=== PATIENT | male | born 1985 | race Caucasian/White ===

== ENCOUNTER 2025-06-12 17:01 | Inpatient (IN) | payer MEDICAID, SELFPAY ==
[2025-06-12 17:03] VITALS: BP 147/108; PULSE 132; RESP 18; TEMP 36.6; O2SAT 97; BMI 20.9
--- NOTE | 2025-06-12 17:25 | EDS_ITS ---
HPI History of Present Illness Chief Complaint: Substance Abuse Narrative Narrative: Patient is a 39-year-old male presenting to the emergency department for detox. Patient reports that he uses fentanyl and heroin. He used approximately an hour ago. States that he usually uses every 6 hours. Has been doing this for about 5 years. Reports that he went through detox once in [place]. Endorses marijuana use as well. Denies any alcohol or any other drug use. [facility] Medical History (Updated 06/12/25 @ 18:02 by Priscilla Nieves) Hepatitis C Hypertension Home Medications ?Medication ?Instructions ?Recorded ?Last Taken ?Type NK 06/12/25 Unknown History Allergy/AdvReac Type Severity Reaction Status Date / Time acetaminophen (From Percocet) Allergy Mild Hives Verified 06/12/25 17:02 hydrocodone (From Vicodin) Allergy Mild Hives Verified 06/12/25 17:02 oxycodone (From Percocet) Allergy Mild Hives Verified 06/12/25 17:02 tramadol Allergy Hives Verified 06/12/25 17:02 Social History Smoking Status: Current every day smoker tobacco type: cigarettes ROS ROS ED ROS Narrative see HPI EXAM Physical Exam Narrative Exam Narrative: Vital signs: Reviewed General: Alert and orientedx3. No acute distress HEENT: Head is normocephalic and atraumatic, sinuses nontender, pupils equal round and reactive. 3mm bilaterally. Nares are patent. Oropharynx and throat exams normal. Neck: Supple without lymphadenopathy nontender Cardiovascular: Regular rate and rhythm, no murmurs. No rubs or gallops. Normal S1 and S2 Respiratory: Clear to auscultation bilaterally. No wheezes, rales, rhonchi Abdominal: Soft and nontender. Normal bowel sounds. No guarding or rebound. Nonsurgical abdomen Extremities: No tenderness. No bruising. Normal range of motion. Normal sensation. Skin: Excoriations to bilateral arms. No evidence of cellulitis or abscesses. Neurological: Cranial nerves II through XII are grossly intact. Normal strength and sensation. Normal cerebellar function The rest of the physical exam is unremarkable Const Vital Signs: 06/12/25 17:03 06/12/25 17:45 Temperature 97.9 F Temperature Source Temporal Pulse Rate 132 H 95 Respiratory Rate 18 18 Blood Pressure 147/108 H 141/91 H Blood Pressure Mean 121 107 Pulse Ox 97 100 Oxygen Delivery Method Room Air Room Air MDM MDM MDM Narrative Medical decision making narrative: Patient is a 39-year-old male presenting emergency department for detox. Patient was seen and examined. Patient arrives and is tachycardic at 132. Vitals are otherwise stable. Vitals on recheck in the room with HR of 95. Basic labs and urine drug screen ordered. COWS score of 9 based on triage vitals however after revital now score of 6. Patient given Zofran for symptomatic control. Alcohol level negative. Blood work was consistent with some mild dehydration otherwise no significant abnormalities. Patient admitted to hospitalist, Dr. Melo for further management of his opiate detox. Clinical impression: Substance abuse Detox History & Record Review Discussion w/independent historian: Patient and Family Lab Data Attestation: I reviewed the patient's lab results. Labs: Laboratory Results - last 24 hr 06/12/25 06/12/25 17:27 17:32 WBC 14.0 H RBC 5.06 Hgb 13.9 Hct 41.3 MCV 81.6 MCH 27.5 MCHC 33.7 RDW Std Deviation 40.6 RDW Coeff of Rayne 13.9 Plt Count 454 H MPV 10.7 Immature Gran % (Auto) 0.300 Neut % (Auto) 58.8 Lymph % (Auto) 31.7 Merrick % (Auto) 8.5 Eos % (Auto) 0.3 Baso % (Auto) 0.4 Absolute Neuts (auto) 8.3 H Absolute Lymphs (auto) 4.44 Nucleated RBC % 0 Platelet Estimate ADEQUATE RBC Morphology NORM C+C Sodium 148 H Potassium 3.3 Chloride 101 Carbon Dioxide 31.0 Anion Gap 17 H BUN 26 H Creatinine 1.05 Estim Creat Clear Calc 91.86 Est GFR (MDRD) Non-Af 93 BUN/Creatinine Ratio 25.0 H Glucose 105 H Calcium 10.1 Urine Opiates Screen PRESUMPTIVE POSITIVE U Buprenorphine Qual NEGATIVE Ur Oxycodone Screen NEGATIVE Urine Methadone Screen NEGATIVE Urine Fentanyl Screen PRESUMPTIVE POSITIVE Ur Barbiturates Screen NEGATIVE Ur Phencyclidine Scrn NEGATIVE Ur Amphetamines Screen PRESUMPTIVE POSITIVE U Benzodiazepines Scrn NEGATIVE Urine Cocaine Screen NEGATIVE U Cannabinoids Screen PRESUMPTIVE POSITIVE Ethyl Alcohol < 10.1 Discharge Plan Triage Chief Complaint: Substance Abuse ED Provider: Prisca Hutchins Dx/Rx/DC Orders Prescriptions: No Action NK Primary Care Provider: Care Physician,No Primary Referrals: Care Physician,No Primary [Primary Care Provider] - Print Language: Cypriot
[2025-06-12 17:45] VITALS: BP 141/91; PULSE 95; RESP 18; O2SAT 100
[2025-06-12 17:47] LABS: Hematocrit 41.3 % (40-54); Hemoglobin 13.9 g/dL (13.0-16.5); Immature Granulocytes Count 0.040 X10^3/uL (0.0-0.0); Mean Corp Hgb Conc 33.7 g/dL (32-36); Mean Corpuscular Volume 81.6 fL (80-94); Mean Platelet Vol. 10.7 fl (6.2-12.0); NRBC Flagged by Analyzer 0 % (0-5); POSITIVE MORPHOLOGY YES; Platelet Count 454 K/mm3 (150-450); RBC Distribution Width CV 13.9 % (11.6-14.6); RBC Distribution Width SD 40.6 fl (35.1-43.9); Red Blood Count 5.06 M/mm3 (4.6-6.2); White Blood Count 14.0 K/mm3 (4.4-11.0)
--- OUTSIDE RECORDS SUMMARY | 2025-06-12 17:57 | XMS RPT_ITS | CCD ---
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 EMERGENCY DEPARTMENT PHYSICIAN [facility] Discharge Instructionon 06-07 Discharge Instruction [facility] Records [id number] AUDRA BHATLEONARDO LUIS ENRIQUE [address]45[address]Gnfiexyyl Przftqchxmz60/29/17 1901MR#: [id number] Acct: [id number]: GERALD GREER Rep #: [id number]: 1985 31 From: Glenys REYESCP: NOT,DEFINED Status: PRE ERED Disposition- Plan for ED Patient:Chief Complaint: General IllnessInstructions: ED Gastroenteritis ViralPrescriptions:Ondan setron [Zofran Odt] 4 mg PO Q8H PRN PRN #10 tabletPRN Reason: NauseaReferrals:NOT,RICCI QUINTERO [Primary Care Provider] -Haroon Mercedes MD [STAFF PHYSICIAN] - 3-5 DaysWhat to do if you have ProblemsFor any increased pain, shortness of breath, bleeding, nausea or vomiting, chest pain, or anyunexpected problems, contact your Primary Care Provider. Call [facility] ([phone])or report to the closest Emergency Room.Call 911 if necessary.07/04/171902 Date Glenys De La Paz Signature (If Indicated): Date CC : DEFINED NOT Normal [facility] Emergency Department Summary on 07-04-2017 Emergency Department Summary [facility] Records [id number] AUDRA BHATMARCO ANTONIOETHEL LUIS ENRIQUE [address]Zvhuolaoe Department Yykdyzf54/29/17 1900MR#: [id number] Acct: [id number]: GREERGERALD Rep #: [id number]: 1985 31 From: Glenys REYESCP: NOT,DEFINED Status: PRE ER- ER Visit SummaryDate of Service: 07/04/17Chi Complaint: [Vomiting diarrhea]History of Present Illness: The patient is a 31 M [presents with symptoms of stomach flu timesapproximately 24 hours. Patient states that he had watery diarrhea about once every hour untilthis morning. Patient also vomited multiple times. He denies any cough. He denies any fever.He started to develop a mild sore throat today.]Physical Examination: [HEENT-PERRLA, EOMI. Cranial nerves II through XII grossly intact. TMsclear. Mucous membranes moist. No adenopathy.Cardiovascula r-regular rate and rhythm without murmur or ectopyLungs-clear to auscultation, chest wall stable without crepitus or subcu emphysemaAbdomen-normoac tive bowel sounds, soft, nontender, no rebound or rigidity, no peritoneal signs.Extremities-intact 4, normal range of motion, normal pulses, atraumatic]Test Results: [None indicated]Emergency Department Course and Treatment: [None at this time] she has normal vital signs andlooks well.Treatment Plan: [Patient will be given a prescription for Zofran and instructed to use Imodiumas needed for diarrhea]Disposition: Discharged home in stable condition. Patient advised to follow-up with primarycare physician who is on-call for no doc within next 3-5 days as needed. []Impression: [Viral gastroenteritis]ED Disposition- Plan for ED Patient:Chief Complaint: General IllnessReferrals:NOT,DEF INED [Primary Care Provider] -What to do if you have ProblemsFor any increased pain, shortness of breath, bleeding, nausea or vomiting, chest pain, or anyunexpected problems, contact your Primary Care Provider. Call [facility] ([phone])or report to the closest Emergency Room.Call 911 if necessary.07/04/17 1901 Date Glenys Robertson DOCosigner Signature (If Indicated): Date CC : DEFINED NOT Normal [facility] Encounters Encounter Date Encounter Type Care Provider Facility Start: 12-20-2023 End: 12-20-2023 Emergency department patient visit PHYSICIAN LUZ [facility] Start: 07-10-2023 End: 07-10-2023 Emergency department patient visit DR DANIELLA JOHNSON DO Facility:B Start: 02-17-2023 End: 02-17-2023 Emergency department patient visit SOLEDAD GONZALEZ DO Facility:[facility] Start: 07-04-2017 End: 07-04-2017 Emergency department patient visit Glenys Robertson Facility:[facility] Payers Date Payer Category Payer Unknown [id number] 1985 Unknown [id number] 1985 Unknown [id number] 1985 Unknown [id number] Unknown [id number] Summary Purpose Family History No Family History Records FoundNo Family History Records FoundNo Family History Records FoundNo Family History Records Found Advance Directives No Advanced Directives Records FoundNo Advanced Directives Records FoundNo Advanced Directives Records FoundNo Advanced Directives Records Found Additional Source Comments (unrecognized sect ion and content) No Status Records FoundNo Status Records FoundNo Status Records FoundNo Status Records Found INFORMATION SOURCE (unrecogn ized section and content) DATE CREATED AUTHOR 04/03/2018 [facility] DATE CREATED AUTHOR AUTHOR'S ORGANIZ ATION 05/16/2020 [facility] DATE CREATED AUTHOR AUTHOR'S ORGANIZ ATION 07/21/2023 [facility] ([place]) DATE CREATED AUTHOR AUTHOR'S ORGANIZ ATION 10/03/2024 [facility] FOR RECORDS PERTAINING TO PATIENTS WHO ARE OR HAVE BEEN ENROLLED IN A CHEMICAL DEPENDENCY/SUBSTANCEABUSE PROGRAM, SOME INFORMATION MAY BE OMITTED. This clinical summary was aggregated from multiple sources. Caution should be exercised in using it in the provision of clinical care. This summary normalizes information from multiple sources, and as a consequence, information in this document may materially change the coding, format and clinical context of patient data. In addition, data may be omitted in some cases. CLINICAL DECISIONS SHOULD BE BASED ON THE PRIMARY CLINICAL RECORDS. [employer] [facility]. provides no warranty or guarantee of the accuracy or completeness of information in this document.
[2025-06-12 18:02] VITALS: BP 146/99; PULSE 100; RESP 19; O2SAT 99
[2025-06-12 18:04] LABS: Anion Gap 17 (5-15); BUN 26 mg/dL (4-19); BUN/Creat Ratio 25.0 RATIO (10-20); Calcium,Total 10.1 mg/dL (7.6-11.0); Carbon Dioxide 31.0 mmol/L (21.0-32.0); Chloride 101 mmol/L (98-108); Estimated Creatinine Clearance 91.86 ml/min (50-250); Glucose 105 mg/dL (70-99); Potassium 3.3 mmol/L (3.3-5.1)
[2025-06-12 18:07] LABS: Differential Indicated SCAN CRITERIA MET
[2025-06-12 18:08] LABS: Red Cell Morphology NORM C+C NORMAL (NORM C&C)
[2025-06-12 18:11] LABS: Alcohol, Blood (Medical)-Serum < 10.1 mg/dL (<=10.0)
[2025-06-12 18:14] LABS: Barbiturate Urine NEGATIVE (< 200 ng/mL); Benzodiazepine Urine NEGATIVE (< 200 ng/mL); PCP Urine NEGATIVE (< 25 ng/mL); THC Urine PRESUMPTIVE POSITIVE (< 50 ng/mL)
[2025-06-12 18:24] VITALS: BP 141/91; PULSE 95; RESP 18; TEMP 36.6; O2SAT 100
--- NOTE | 2025-06-12 18:57 | HP.PCM.HOS_ITS ---
HPI - General General Date of Admission: 06/12/25 Date of Service: 06/12/25 Chief Complaint: Requesting opioid detox HPI Narrative CIERA STEWART, is a 39-year-old male history of hepatitis C and fentanyl and heroin use presented [facility] ED 06/12/2025 requesting detox from opiates. He uses fentanyl and heroin around every 6 hours and has been for about 5 years, used 1 hour ago. Has never been through detox here but went through detox once in [place]. Uses marijuana as well but no other alcohol or drug use reported. In the ED temp 97.9, heart rate initially 132 but repeat of 95, blood pressure 141/91, respiratory rate 18 and pulse ox 100% on room air. BMP with a sodium of 148, BUN of 26 and creatinine 1.05, glucose 105, CBC with white count of 14 and platelet 454. Alcohol negative. UDS presumptive positive for opiates, fentanyl, amphetamines cannabinoids. Hospitalist contacted for admission for opioid detox. Patient evaluated bedside with family member present. Family member expressed her irritation the patient was not yet completely admitted as patient was becoming increasingly irritable and talking about possibly leaving, patient however very cooperative and did not express that to me at time of exam. He reports IV drug abuse and diagnosis of hepatitis C last year but is not had treatment. He uses fentanyl and heroin and sometimes methamphetamine as well as marijuana last use 1 hour prior to arrival. At time my evaluation he is primarily complaining of bodyaches but also notes stuffy nose. Has a slight cough which is not new and reports for a while he has had a little bit of swelling in his ankles which also is not new. Denies any overt abdominal pain but on palpation did say he had some [facility] Medical History (Updated 06/12/25 @ 19:[address] Arabella Melo MD) Hepatitis C Hypertension Home Medications ?Medication ?Instructions ?Recorded ?Last Taken ?Type NK 06/12/25 Unknown History Allergy/AdvReac Type Severity Reaction Status Date / Time acetaminophen (From Percocet) Allergy Mild Hives Verified 06/12/25 17:02 hydrocodone (From Vicodin) Allergy Mild Hives Verified 06/12/25 17:02 oxycodone (From Percocet) Allergy Mild Hives Verified 06/12/25 17:02 tramadol Allergy Hives Verified 06/12/25 17:02 Social History Smoking Status: Current every day smoker tobacco type: cigarettes ROS ROS Narrative General: Denies fever/chills, has generalized bodyaches HENT: Some nasal congestion will bit of a headache, denies sore throat EYES: Denies changes in vision Resp: Chronic cough, denies shortness of breath Cardiac: Denies chest pain GI: Maybe some slight abdominal pain and nausea : Denies changes in urination Extremity: Has some chronic swelling in his ankles MSK: Denies weakness Neuro: Denies any numbness/tingling Heme: Denies any bleeding or bruising Skin: Denies rashes Psychiatric: Patient just uncomfortable and anxious Vital Signs Vital Signs Vital Signs: 06/12/25 17:03 06/12/25 17:45 06/12/25 18:02 Temperature 97.9 F Temperature Source Temporal Pulse Rate 132 H 95 100 Respiratory Rate 18 18 19 H Blood Pressure 147/108 H 141/91 H 146/99 H Blood Pressure Mean 121 107 114 Pulse Ox 97 100 99 Oxygen Delivery Method Room Air Room Air 06/12/25 18:24 Temperature 98 F Temperature Source Pulse Rate 95 Respiratory Rate 18 Blood Pressure 141/91 H Blood Pressure Mean 107 Pulse Ox 100 Oxygen Delivery Method Weight Weight: 68.084 kg Body Mass Index (BMI) 20.9 Physical Exam Narrative General: Alert, oriented HEENT: Atraumatic, normocephalic Eyes: Anicteric, normal conjunctiva, extraocular movements grossly intact Neck: Supple Respiratory: Clear to auscultation bilaterally, normal respiratory effort Cardiovascular: Low-grade sinus tachycardia GI: Soft, nondistended, a little bit tender diffusely without any rebound, guarding, rigidity Extremities: No pitting edema Musculoskeletal: Moving all extremities Neuro: No overt focal neurological deficits Skin: No rashes appreciated Psych: Cooperative but appears anxious Results Lab / Micro Data 06/12/25 17:27 06/12/25 17:27 Labs: Laboratory Results - last 24 hr 06/12/25 17:27: WBC 14.0 H, RBC 5.06, Hgb 13.9, Hct 41.3, MCV 81.6, MCH 27.5, MCHC 33.7, RDW Std Deviation 40.6, RDW Coeff of Rayne 13.9, Plt Count 454 H, MPV 10.7, Immature Gran % (Auto) 0.300, Neut % (Auto) 58.8, Lymph % (Auto) 31.7, [place] % (Auto) 8.5, Eos % (Auto) 0.3, Baso % (Auto) 0.4, Absolute Neuts (auto) 8.3 H, Absolute Lymphs (auto) 4.44, Nucleated RBC % 0, Platelet Estimate ADEQUATE, RBC Morphology NORM C+C, Sodium 148 H, Potassium 3.3, Chloride 101, Carbon Dioxide 31.0, Anion Gap 17 H, BUN 26 H, Creatinine 1.05, Estim Creat Clear Calc 91.86, Est GFR (MDRD) Non-Af 93, BUN/Creatinine Ratio 25.0 H, Glucose 105 H, Calcium 10.1, Ethyl Alcohol < 10.1 06/12/25 17:32: Urine Opiates Screen PRESUMPTIVE POSITIVE, U Buprenorphine Qual NEGATIVE, Ur Oxycodone Screen NEGATIVE, Urine Methadone Screen NEGATIVE, Urine Fentanyl Screen PRESUMPTIVE POSITIVE, Ur Barbiturates Screen NEGATIVE, Ur Phencyclidine Scrn NEGATIVE, Ur Amphetamines Screen PRESUMPTIVE POSITIVE, U Benzodiazepines Scrn NEGATIVE, Urine Cocaine Screen NEGATIVE, U Cannabinoids Screen PRESUMPTIVE POSITIVE Assessment & Plan Assessment/Plan (1) Opioid abuse: (2) Amphetamine abuse: (3) Tobacco use: (4) Hepatitis C: PLAN: Plan #Acute opiate withdrawal - Subutex taper initiated - As needed Tylenol, ibuprofen, bowel regimen, gabapentin, Bentyl, Vistaril, methocarbamol, clonidine - As needed trazodone nightly - As needed antiemetics -Once patient begins to clinically improve will discuss further discharge planning # Hepatitis C -Reports being told he was positive last year -Has not pursued treatment -Has some vague abdominal discomfort -Will check hepatic panel and INR -If abnormal could consider viral serologies versus deferring to outpatient -Would recommend outpatient follow-up # Polysubstance abuse -Advise cessation, patient uses methamphetamine in addition to opiates #Tobacco use -Advise cessation -Nicotine replacement available if desired #DVT ppx: Low risk, ambulatory Arabella Melo MD Charges/Coding Visit Charges Inpatient E&M: 89397 Init Hosp L2
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
[2025-06-12 19:38] VITALS: BMI 20.1
[2025-06-12 19:39] VITALS: BP 145/96; PULSE 98; RESP 18; TEMP 37; O2SAT 100
[2025-06-12] MEDS: Nicotine (PBKC) 14 MG Patch TD (20:06)
[2025-06-12 20:47] LABS: AST(SGOT) 24 U/L (<=37); Alanine Aminotransfer ALT/SGPT 17 U/L (<=46); Albumin, Serum 4.6 g/dL (3.5-5.0); Alkaline Phosphatase 85 U/L (40-129); Bilirubin, Direct 0.20 mg/dL (0.00-0.30); Globulin 3.6 g/dL (2.2-4.2)
[2025-06-13 02:49] VITALS: BP 137/85; PULSE 98; RESP 14; TEMP 36.6; O2SAT 99
[2025-06-13 08:23] LABS: Hematocrit 44.4 % (40-54); Hemoglobin 15.0 g/dL (13.0-16.5); Immature Granulocytes Count 0.090 X10^3/uL (0.0-0.0); Mean Corp Hgb Conc 33.8 g/dL (32-36); Mean Corpuscular Volume 81.3 fL (80-94); Mean Platelet Vol. 11.0 fl (6.2-12.0); NRBC Flagged by Analyzer 0 % (0-5); Platelet Count 336 K/mm3 (150-450); RBC Distribution Width CV 13.8 % (11.6-14.6); RBC Distribution Width SD 40.7 fl (35.1-43.9); Red Blood Count 5.46 M/mm3 (4.6-6.2); White Blood Count 11.4 K/mm3 (4.4-11.0)
[2025-06-13 09:00] VITALS: PULSE 100
[2025-06-13 09:01] VITALS: BP 146/90; PULSE 101; RESP 18; TEMP 36.6; O2SAT 97
[2025-06-13] MEDS: Nicotine (PBKC) 14 MG Patch TD (09:10)
[2025-06-13 09:59] LABS: AST(SGOT) 29 U/L (<=37); Alanine Aminotransfer ALT/SGPT 15 U/L (<=46); Albumin, Serum 4.3 g/dL (3.5-5.0); Alkaline Phosphatase 82 U/L (40-129); Anion Gap 15 (5-15); BUN 26 mg/dL (4-19); BUN/Creat Ratio 32.7 RATIO (10-20); Calcium,Total 9.8 mg/dL (7.6-11.0); Carbon Dioxide 27.9 mmol/L (21.0-32.0); Chloride 98 mmol/L (98-108); Estimated Creatinine Clearance 118.96 ml/min (50-250); Globulin 3.0 g/dL (2.2-4.2); Glucose 102 mg/dL (70-99); Potassium 3.9 mmol/L (3.3-5.1)
--- NOTE | 2025-06-13 11:39 | PN.HOSP_ITS ---
Reason for Visit Chief Complaint: Requesting opioid detox Objective Data Objective Data Vital Signs: Vital Signs Temp Pulse Resp BP Pulse Ox O2 Del Method 97.9 F 101 H 18 146/90 H 97 Room Air 06/13/25 09:01 06/13/25 09:01 06/13/25 09:01 06/13/25 09:01 06/13/25 09:01 06/13/25 09:01 Oxygen Delivery Method Room Air Weight: 144 lb 6.444 oz Body Mass Index (BMI) 20.1 Intake & Output: Intake and Output for Last 24 Hours 06/11/25 06/12/25 06/13/25 23:59 23:59 23:59 Intake Total 240 / 240 Balance 240 / 240 Lab / Micro Data 06/13/25 07:53 06/13/25 07:53 Labs: Laboratory Results - last 24 hr 06/12/25 17:27: WBC 14.0 H, RBC 5.06, Hgb 13.9, Hct 41.3, MCV 81.6, MCH 27.5, MCHC 33.7, RDW Std Deviation 40.6, RDW Coeff of Rayne 13.9, Plt Count 454 H, MPV 10.7, Immature Gran % (Auto) 0.300, Neut % (Auto) 58.8, Lymph % (Auto) 31.7, [place] % (Auto) 8.5, Eos % (Auto) 0.3, Baso % (Auto) 0.4, Absolute Neuts (auto) 8.3 H, Absolute Lymphs (auto) 4.44, Nucleated RBC % 0, Platelet Estimate ADEQUATE, RBC Morphology NORM C+C, Sodium 148 H, Potassium 3.3, Chloride 101, Carbon Dioxide 31.0, Anion Gap 17 H, BUN 26 H, Creatinine 1.05, Estim Creat Clear Calc 91.86, Est GFR (MDRD) Non-Af 93, BUN/Creatinine Ratio 25.0 H, Glucose 105 H, Calcium 10.1, Ethyl Alcohol < 10.1 06/12/25 17:32: Urine Opiates Screen PRESUMPTIVE POSITIVE, U Buprenorphine Qual NEGATIVE, Ur Oxycodone Screen NEGATIVE, Urine Methadone Screen NEGATIVE, Urine Fentanyl Screen PRESUMPTIVE POSITIVE, Ur Barbiturates Screen NEGATIVE, Ur Phencyclidine Scrn NEGATIVE, Ur Amphetamines Screen PRESUMPTIVE POSITIVE, U Benzodiazepines Scrn NEGATIVE, Urine Cocaine Screen NEGATIVE, U Cannabinoids Screen PRESUMPTIVE POSITIVE 06/12/25 20:00: Total Bilirubin 0.42, Direct Bilirubin 0.20, AST 24, ALT 17, Alkaline Phosphatase 85, Total Protein 8.1, Albumin 4.6, Globulin 3.6 06/13/25 07:53: WBC 11.4 H, RBC 5.46, Hgb 15.0, Hct 44.4, MCV 81.3, MCH 27.5, MCHC 33.8, RDW Std Deviation 40.7, RDW Coeff of Rayne 13.8, Plt Count 336, MPV 11.0, Immature Gran % (Auto) 0.800, Neut % (Auto) 45.0 L, Lymph % (Auto) 41.3 H, [place] % (Auto) 7.8, Eos % (Auto) 4.5, Baso % (Auto) 0.6, Absolute Neuts (auto) 5.1, Absolute Lymphs (auto) 4.72 H, Nucleated RBC % 0, Sodium 141, Potassium 3.9, Chloride 98, Carbon Dioxide 27.9, Anion Gap 15, BUN 26 H, Creatinine 0.78, Estim Creat Clear Calc 118.96, Est GFR (MDRD) Non-Af 117, BUN/Creatinine Ratio 32.7 H, Glucose 102 H, Calcium 9.8, Total Bilirubin 0.63, AST 29, ALT 15, Alkaline Phosphatase 82, Total Protein 7.2, Albumin 4.3, Globulin 3.0, Albumin/Globulin Ratio 1.4 Assessment & Plan Assessment/Plan (1) Opioid abuse: (2) Amphetamine abuse: (3) Tobacco use: (4) Hepatitis C: PLAN: Plan #Acute opiate withdrawal - Subutex taper initiated - As needed Tylenol, ibuprofen, bowel regimen, gabapentin, Bentyl, Vistaril, methocarbamol, clonidine - As needed trazodone nightly - As needed antiemetics -Once patient begins to clinically improve will discuss further discharge planning # Hepatitis C -Reports being told he was positive last year -Has not pursued treatment -Has some vague abdominal discomfort -Will check hepatic panel and INR -If abnormal could consider viral serologies versus deferring to outpatient -Would recommend outpatient follow-up # Polysubstance abuse -Advise cessation, patient uses methamphetamine in addition to opiates #Tobacco use -Advise cessation -Nicotine replacement available if desired #DVT ppx: Low risk, ambulatory Arabella Melo MD
--- NOTE | 2025-06-13 11:53 | ADDICTION ---
Pt was met with for RAMP assessment and to complete the AUDIT, DUDIT, ASAM, MSE, and DC Plan. Pt was engaged in psychoeducation on the disease process of addiction and relapse. Pt was engaged in exploring his pattern of relapse and pt had some insight. Pt was offered residential and outpatient tx options and pt declined residential but was open to outpatient and MAT.
--- NOTE | 2025-06-13 11:59 | NURSING ---
per lab- pt is refusing fingerstick for PT/INR. notified
--- NOTE | 2025-06-13 13:47 | NURSING ---
While this RN was at lunch, pt told psychiatric secretary he was leaving and lied about the room he was in. Pt left AMA.
--- NOTE | 2025-06-13 14:30 | DS.PCM_ITS ---
Providers Date of Admission: 06/12/25 Date of Discharge: 06/13/25 Primary Care Physician: No Primary Care Phys Reason For Visit: OPIOID DETOX Diagnosis Discharge Diagnosis (1) Opioid abuse: Status: Acute Code(s): F11.10 - Opioid abuse, uncomplicated (2) Amphetamine abuse: Status: Acute Code(s): F15.10 - Other stimulant abuse, uncomplicated (3) Tobacco use: Status: Acute Code(s): Z72.0 - Tobacco use (4) Hepatitis C: Status: Acute Code(s): B19.20 - Unspecified viral hepatitis C without hepatic coma Plan This 39-year-old gentleman being admitted for acute opioid withdrawal syndrome. Uses IV fentanyl and heroin half to 1 g daily. Acute opioid withdrawal syndrome with history of chronic opioid use disorder, tolerance: Patient has been in remission floor. The patient is started on buprenorphine along with other adjunctive medications as needed for medical stabilization as per order set of opioid withdrawal syndrome.Patient also on trazodone, hydroxyzine, gabapentin as needed ordered. 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 # Chronic Hepatitis C -Reports being told he was positive last year -Not been treated before. Liver chemistry normal limit. Patient refused for INR check. - # Polysubstance abuse -Advise cessation, patient uses methamphetamine in addition to opiates #Tobacco use -Advise cessation -Nicotine replacement available if desired #DVT ppx: Low risk, ambulatory Patient signed AMA today. Medications at Discharge Home Medications NK 06/12/25 Physical Exam Narrative Seen and examined Patient is awake but slow and lethargic Physical exam: General: Awake, oriented x 3 HEENT: Atraumatic, PERRLA, EOMI, Normocephalic. Oral: No Gingival or Mucosal Lesions/ Ulcerations Neck: Supple, No JVD, Negative Carotid Bruits Chest wall/Lungs: Air entry diminished in bilateral lung bases. No crepitation/rhonchi Cardiovascular: Regular rate and rhythm, Normal S1,S2, No M/G/R Abdomen: Bowel Sounds Present, Soft, Non Tender, Non-Distended : No dysuria. No renal angle tenderness. No suprapubic tenderness. Extremities: No edema, Capillary Refill Less than 3 Seconds Skin: No rashes, No breakdown Musculoskeletal: No Tenderness to Palpation of Joints or Extremities Neurological: Cranial nerves II-XII grossly intact, DTR 2+/4. No acute focal neurological deficit. Psych/Mental Status: Flat affect. Denies suicidal ideation. Weight / BMI Weight Weight: 144 lb 6.444 oz Body Mass Index (BMI) 20.1 ABG / Lab / Microbiology Data 06/13/25 07:53 06/13/25 07:53 Laboratory: Laboratory Results - last 24 hr 06/12/25 17:27: WBC 14.0 H, RBC 5.06, Hgb 13.9, Hct 41.3, MCV 81.6, MCH 27.5, MCHC 33.7, RDW Std Deviation 40.6, RDW Coeff of Rayne 13.9, Plt Count 454 H, MPV 10.7, Immature Gran % (Auto) 0.300, Neut % (Auto) 58.8, Lymph % (Auto) 31.7, [place] % (Auto) 8.5, Eos % (Auto) 0.3, Baso % (Auto) 0.4, Absolute Neuts (auto) 8.3 H, Absolute Lymphs (auto) 4.44, Nucleated RBC % 0, Platelet Estimate ADEQUATE, RBC Morphology NORM C+C, Sodium 148 H, Potassium 3.3, Chloride 101, Carbon Dioxide 31.0, Anion Gap 17 H, BUN 26 H, Creatinine 1.05, Estim Creat Clear Calc 91.86, Est GFR (MDRD) Non-Af 93, BUN/Creatinine Ratio 25.0 H, Glucose 105 H, Calcium 10.1, Ethyl Alcohol < 10.1 06/12/25 17:32: Urine Opiates Screen PRESUMPTIVE POSITIVE, U Buprenorphine Qual NEGATIVE, Ur Oxycodone Screen NEGATIVE, Urine Methadone Screen NEGATIVE, Urine Fentanyl Screen PRESUMPTIVE POSITIVE, Ur Barbiturates Screen NEGATIVE, Ur Phencyclidine Scrn NEGATIVE, Ur Amphetamines Screen PRESUMPTIVE POSITIVE, U Benzodiazepines Scrn NEGATIVE, Urine Cocaine Screen NEGATIVE, U Cannabinoids Screen PRESUMPTIVE POSITIVE 06/12/25 20:00: Total Bilirubin 0.42, Direct Bilirubin 0.20, AST 24, ALT 17, Alkaline Phosphatase 85, Total Protein 8.1, Albumin 4.6, Globulin 3.6 06/13/25 07:53: WBC 11.4 H, RBC 5.46, Hgb 15.0, Hct 44.4, MCV 81.3, MCH 27.5, MCHC 33.8, RDW Std Deviation 40.7, RDW Coeff of Rayne 13.8, Plt Count 336, MPV 11.0, Immature Gran % (Auto) 0.800, Neut % (Auto) 45.0 L, Lymph % (Auto) 41.3 H, [place] % (Auto) 7.8, Eos % (Auto) 4.5, Baso % (Auto) 0.6, Absolute Neuts (auto) 5.1, Absolute Lymphs (auto) 4.72 H, Nucleated RBC % 0, Sodium 141, Potassium 3.9, Chloride 98, Carbon Dioxide 27.9, Anion Gap 15, BUN 26 H, Creatinine 0.78, Estim Creat Clear Calc 118.96, Est GFR (MDRD) Non-Af 117, BUN/Creatinine Ratio 32.7 H, Glucose 102 H, Calcium 9.8, Total Bilirubin 0.63, AST 29, ALT 15, Alkaline Phosphatase 82, Total Protein 7.2, Albumin 4.3, Globulin 3.0, Albumin/Globulin Ratio 1.4 D/C Instructions DC O2, CPAP, BIPAP Needs Home O2 Discharge instructions: No Meaningful Use Info Meaningful Use Meaningful Use Diagnoses (Choose all that apply): None applicable Discharge Plan Admission Admit Date/Time: 06/12/25 18:57 Attending Provider: Eren Juarez Primary Care Provider: Care Physician,No Primary Consulting Providers: Arabella Melo Discharge Orders/Prescriptions Prescriptions: No Action NK Referrals / Follow Up: Care Physician,No Primary [Primary Care Provider] - Disposition Disposition (needs filled in before D/C Order can be placed): Against Medical Advice Charges/Coding Visit Charges Inpatient E&M: 41924 Disch Hosp >30min
== END 2025-06-13 13:19 | disposition left against medical advice (07) | DRG 770 ==
LOC: ED 17:56 → MS3 18:59
PROVIDERS: Admitting Provider Internal Medicine; Emergency Provider Student in an Organized Health Care Education/Training Program; Visit Provider Internal Medicine
DX: F11.13 Opioid abuse with withdrawal (principal); B18.2 Chronic viral hepatitis C; F15.10 Other stimulant abuse, uncomplicated; F17.210 Nicotine dependence, cigarettes, uncomplicated; Z53.29 Procedure and treatment not carried out because of patient's decision for other reasons
CPT/HCPCS: 36415; 80048; 80053; 80076; 80307; 82077; 85025; 99284